=== PATIENT | female | born 1945 | race Caucasian/White ===

== ENCOUNTER → 2017-12-23 | Outpatient (CLI) | payer MEDICARE, OTHER ==
[~2017-12-23] MED LIST: ADULT LOW DOSE81 MG PO; ALDACTONE25 MG PO; COUMADIN 5 MG TA5 M1 PO; COZAAR 50 MG TA50 M2 PO; CRESTOR20 MG PO; FISHOIL PO; K-DUR10 ME1 PO; LAMISIL250 MG PO; LEVOTHYROXINE 0.15MG PO; LEVOTHYROXINE0.2 M1 PO; PACERONE 200 M200 M1 NG; TOPROL XL25 MG PO; TRAMADOL 50 MG50 MG PO; TRIAMTERENE-HC1 EAC1 PO; VOLTAREN GEL 1100 G2 TOP; [UNRECOGNIZED DRUG - CODE] PO
== END ==
LOC: M.WC 10:00
DX: L89.312 Pressure ulcer of right buttock, stage 2 (principal); S31.811A Laceration without foreign body of right buttock, initial encounter; I48.2 Chronic atrial fibrillation; I10 Essential (primary) hypertension; E78.5 Hyperlipidemia, unspecified; E03.8 Other specified hypothyroidism; E78.00 Pure hypercholesterolemia, unspecified; E66.01 Morbid (severe) obesity due to excess calories; I25.10 Atherosclerotic heart disease of native coronary artery without angina pectoris; Z95.1 Presence of aortocoronary bypass graft; Z90.710 Acquired absence of both cervix and uterus; Z68.43 Body mass index [BMI] 50.0-59.9, adult; Z79.01 Long term (current) use of anticoagulants; X58.XXXA Exposure to other specified factors, initial encounter; Y93.89 Activity, other specified; Y92.89 Other specified places as the place of occurrence of the external cause; Y99.8 Other external cause status

== ENCOUNTER → 2018-01-07 | Outpatient (CLI) | payer MEDICARE, OTHER | LOC: M.WC 03:51 | DX: L89.312 Pressure ulcer of right buttock, stage 2 (principal); S71.131D Puncture wound without foreign body, right thigh, subsequent encounter; I10 Essential (primary) hypertension; I25.10 Atherosclerotic heart disease of native coronary artery without angina pectoris; I48.2 Chronic atrial fibrillation; E03.8 Other specified hypothyroidism; E78.5 Hyperlipidemia, unspecified; E78.00 Pure hypercholesterolemia, unspecified; E66.01 Morbid (severe) obesity due to excess calories; Z95.1 Presence of aortocoronary bypass graft; Z68.43 Body mass index [BMI] 50.0-59.9, adult; Z90.710 Acquired absence of both cervix and uterus; X58.XXXD Exposure to other specified factors, subsequent encounter ==

== ENCOUNTER → 2018-01-12 | Outpatient (CLI) | payer MEDICARE, OTHER ==
--- NOTE | 2018-01-12 12:26 | 2DMMODE ---
[place] [address] 2 D/M-MODE ECHOCARDIOGRAM Name: HAWA CAMERON Room: [facility]#: [id number] Admission: 01/12/18 Attend Phys: Miguel Patel, Discharge: Date of : 49 Date of Service: 01/12/18 1225 Report #: [id number] THIS REPORT FOR: //name// APPROVED REPORT Study performed: 01/12/2018 10:18:08 EXAM: Comprehensive 2D, Doppler, and color-flow Echocardiogram Patient Location: Out-Patient BSA: 2.44 HR: 57 bpm Other Information Study Quality: Fair Technically limited study due to body habitus, inability to position patient. Indications Aortic Valve Disease CAD 2D Dimensions LVEF(%): 62.61 (>50%) IVSd: 11.21 (7-11mm) LVOT Diam: 16.57 (18-24mm) LVDd: 45.17 mm PWd: 10.22 (7-11mm) Ascending Ao: 27.00 (22-36mm) LVDs: 29.95 (25-40mm) Aortic Root: 25.27 mm Gee's LVEF: 62.61 % Volumes Left Atrial Volume (Systole) LA ESV Index: 32.80 mL/m2 Aortic Valve AoV Peak Keenan.: 4.11 m/s AO Peak Gr.: 67.00 mmHg LVOT Max P.45 mmHg AO Mean Gr.: 41.00 mmHg LVOT Mean P.84 mmHg LVOT Max V: 0.93 m/s AO V2 VTI: 106.90 cm LVOT Mean V: 0.63 m/s JORGE (VTI): 0.47 cm2 LVOT V1 VTI: 23.51 [place] [address] 2 D/M-MODE ECHOCARDIOGRAM Name: HAWA CAMERON Room: [facility]#: [id number] Admission: 01/12/18 Attend Phys: Miguel Patel, Discharge: Date of : 49 Date of Service: 01/12/18 1225 Report #: [id number] E/A Ratio: 1.32 MV Decel. Time: 252.78 ms MV E Max Keenan.: 0.95 m/s MV PHT: 73.31 ms MVA (PHT): 3.00 cm2 TDI E/Lateral E': 7.92 E/Medial E': 10.56 Medial E' Keenan.: 0.09 m/s Lateral E' Keenan.: 0.12 m/s Pulmonary Valve PV Peak Keenan.: 1.26 m/s PV Peak Gr.: 6.38 mmHg Tricuspid Valve RAP Estimate: 5.00 mmHg TR Peak Gr.: 43.56 mmHg RVSP: 48.56 mmHg PA Pressure: 48.56 mmHg Left Ventricle The left ventricle is normal size. There is normal LV segmental wall motion. There is normal left ventricular wall thickness. Left ventricular systolic function is normal. The left ventricular ejection fraction is within the normal range. LVEF is 55-60%. Right Ventricle The right ventricle is normal size. The right ventricular systolic function is normal. Atria Left atrium is moderately dilated. Right atrium is mildly dilated. Aortic Valve Aortic valve is calcified. Trace aortic regurgitation. Moderate aortic stenosis. Mitral Valve There is mitral annular calcification. Mild to moderate mitral regurgitation. No evidence of mitral valve stenosis. Tricuspid Valve The tricuspid valve is normal in structure. Moderate tricuspid regurgitation[place] [address] 2 D/M-MODE ECHOCARDIOGRAM Name: HAWA CAMERON Tl Room: [facility]#: [id number] Admission: 01/12/18 Attend Phys: Miguel Patel, Discharge: Date of : 49 Date of Service: 01/12/18 1225 Report #: [id number] The pulmonary valve is normal in structure. Mild pulmonic regurgitation. Great Vessels The aortic root is normal in size. IVC is normal in size and collapses with >50% inspiration Pericardium There is no pericardial effusion. <Conclusion> The left ventricle is normal size. There is normal left ventricular wall thickness. Left ventricular systolic function is normal. The left ventricular ejection fraction is within the normal range. LVEF is 55-60%. The right ventricle is normal size. Aortic valve is calcified. Trace aortic regurgitation. Moderate aortic stenosis. There is mitral annular calcification. Mild to moderate mitral regurgitation. The tricuspid valve is normal in structure. Moderate tricuspid regurgitation. IVC is normal in size and collapses with >50% inspiration There is no pericardial effusion. There is normal LV segmental wall motion. Left atrium is moderately dilated. <ELECTRONICALLY SIGNED> By: Agustín Monzon MD, FACC 01/12/18 1225 1225 1225 Agustín Monzon MD, FACC /INF
== END ==
LOC: M.CRD 10:00
DX: I08.3 Combined rheumatic disorders of mitral, aortic and tricuspid valves (principal); I25.10 Atherosclerotic heart disease of native coronary artery without angina pectoris

== ENCOUNTER → 2018-01-20 | Outpatient (CLI) | payer MEDICARE, OTHER | LOC: M.WC 02:10 | DX: L89.312 Pressure ulcer of right buttock, stage 2 (principal); I10 Essential (primary) hypertension; I48.2 Chronic atrial fibrillation; I25.10 Atherosclerotic heart disease of native coronary artery without angina pectoris; E78.5 Hyperlipidemia, unspecified; E03.9 Hypothyroidism, unspecified; E78.00 Pure hypercholesterolemia, unspecified; E66.01 Morbid (severe) obesity due to excess calories; Z95.1 Presence of aortocoronary bypass graft; Z68.43 Body mass index [BMI] 50.0-59.9, adult; Z90.710 Acquired absence of both cervix and uterus ==

== ENCOUNTER → 2018-02-04 | Outpatient (CLI) | payer MEDICARE, OTHER | LOC: M.WC 01:59 | DX: L89.312 Pressure ulcer of right buttock, stage 2 (principal); I25.10 Atherosclerotic heart disease of native coronary artery without angina pectoris; I48.2 Chronic atrial fibrillation; I10 Essential (primary) hypertension; E03.8 Other specified hypothyroidism; E66.01 Morbid (severe) obesity due to excess calories; E78.5 Hyperlipidemia, unspecified; E78.00 Pure hypercholesterolemia, unspecified; Z68.43 Body mass index [BMI] 50.0-59.9, adult; Z95.1 Presence of aortocoronary bypass graft ==

== ENCOUNTER → 2018-02-18 | Outpatient (CLI) | payer MEDICARE, OTHER | LOC: M.WC 01:52 | DX: L89.312 Pressure ulcer of right buttock, stage 2 (principal); L98.412 Non-pressure chronic ulcer of buttock with fat layer exposed; I10 Essential (primary) hypertension; I25.10 Atherosclerotic heart disease of native coronary artery without angina pectoris; I48.2 Chronic atrial fibrillation; E03.8 Other specified hypothyroidism; E78.00 Pure hypercholesterolemia, unspecified; E78.5 Hyperlipidemia, unspecified; E66.01 Morbid (severe) obesity due to excess calories; Z68.43 Body mass index [BMI] 50.0-59.9, adult ==

== ENCOUNTER → 2018-03-04 | Outpatient (CLI) | payer MEDICARE, OTHER | LOC: M.WC 02:54 | DX: L89.312 Pressure ulcer of right buttock, stage 2 (principal); E03.8 Other specified hypothyroidism; E66.01 Morbid (severe) obesity due to excess calories; E78.5 Hyperlipidemia, unspecified; I25.10 Atherosclerotic heart disease of native coronary artery without angina pectoris; I48.2 Chronic atrial fibrillation; I10 Essential (primary) hypertension; Z68.43 Body mass index [BMI] 50.0-59.9, adult; Z95.1 Presence of aortocoronary bypass graft ==

== ENCOUNTER → 2018-03-18 | Outpatient (CLI) | payer MEDICARE, OTHER | LOC: M.WC 05:00 | DX: L89.312 Pressure ulcer of right buttock, stage 2 (principal); I25.10 Atherosclerotic heart disease of native coronary artery without angina pectoris; I48.2 Chronic atrial fibrillation; I10 Essential (primary) hypertension; E03.8 Other specified hypothyroidism; E78.5 Hyperlipidemia, unspecified; E78.00 Pure hypercholesterolemia, unspecified; E66.01 Morbid (severe) obesity due to excess calories; Z68.43 Body mass index [BMI] 50.0-59.9, adult ==

== ENCOUNTER → 2018-04-12 | Outpatient (CLI) | payer MEDICARE, OTHER | LOC: M.WC 04:52 | DX: L89.312 Pressure ulcer of right buttock, stage 2 (principal); E66.01 Morbid (severe) obesity due to excess calories; E78.5 Hyperlipidemia, unspecified; E78.00 Pure hypercholesterolemia, unspecified; E03.8 Other specified hypothyroidism; I48.2 Chronic atrial fibrillation; I25.10 Atherosclerotic heart disease of native coronary artery without angina pectoris; I10 Essential (primary) hypertension; Z95.1 Presence of aortocoronary bypass graft; Z68.43 Body mass index [BMI] 50.0-59.9, adult ==

== ENCOUNTER → 2018-04-26 | Outpatient (CLI) | payer MEDICARE, OTHER | LOC: M.WC 08:13 | DX: L89.312 Pressure ulcer of right buttock, stage 2 (principal); E78.5 Hyperlipidemia, unspecified; E78.00 Pure hypercholesterolemia, unspecified; E66.01 Morbid (severe) obesity due to excess calories; E03.8 Other specified hypothyroidism; I25.10 Atherosclerotic heart disease of native coronary artery without angina pectoris; I10 Essential (primary) hypertension; I48.2 Chronic atrial fibrillation; Z95.1 Presence of aortocoronary bypass graft; Z68.43 Body mass index [BMI] 50.0-59.9, adult ==

== ENCOUNTER → 2018-05-10 | Outpatient (CLI) | payer MEDICARE, OTHER | LOC: M.WC 04:56 | DX: L89.312 Pressure ulcer of right buttock, stage 2 (principal); E78.5 Hyperlipidemia, unspecified; E78.00 Pure hypercholesterolemia, unspecified; E66.01 Morbid (severe) obesity due to excess calories; E03.8 Other specified hypothyroidism; I25.10 Atherosclerotic heart disease of native coronary artery without angina pectoris; I10 Essential (primary) hypertension; I48.2 Chronic atrial fibrillation; Z68.43 Body mass index [BMI] 50.0-59.9, adult; Z95.1 Presence of aortocoronary bypass graft ==

== ENCOUNTER → 2018-05-24 | Outpatient (CLI) | payer MEDICARE, OTHER | LOC: M.WC 05:16 | DX: L89.312 Pressure ulcer of right buttock, stage 2 (principal); E78.5 Hyperlipidemia, unspecified; E78.00 Pure hypercholesterolemia, unspecified; E66.01 Morbid (severe) obesity due to excess calories; E03.8 Other specified hypothyroidism; I48.2 Chronic atrial fibrillation; I25.10 Atherosclerotic heart disease of native coronary artery without angina pectoris; I10 Essential (primary) hypertension; Z68.43 Body mass index [BMI] 50.0-59.9, adult; Z95.1 Presence of aortocoronary bypass graft ==

== ENCOUNTER → 2018-06-07 | Outpatient (CLI) | payer MEDICARE, OTHER | LOC: M.WC 04:48 | DX: L89.312 Pressure ulcer of right buttock, stage 2 (principal); E78.5 Hyperlipidemia, unspecified; E66.01 Morbid (severe) obesity due to excess calories; E78.00 Pure hypercholesterolemia, unspecified; E03.8 Other specified hypothyroidism; I48.2 Chronic atrial fibrillation; I25.10 Atherosclerotic heart disease of native coronary artery without angina pectoris; I10 Essential (primary) hypertension; Z95.1 Presence of aortocoronary bypass graft; Z68.43 Body mass index [BMI] 50.0-59.9, adult ==

== ENCOUNTER → 2018-07-12 | Outpatient (CLI) | payer MEDICARE, BC | LOC: M.WC 06-28 09:00 | DX: L89.312 Pressure ulcer of right buttock, stage 2 (principal); E66.01 Morbid (severe) obesity due to excess calories; E78.5 Hyperlipidemia, unspecified; E78.00 Pure hypercholesterolemia, unspecified; E03.8 Other specified hypothyroidism; I25.10 Atherosclerotic heart disease of native coronary artery without angina pectoris; I10 Essential (primary) hypertension; I48.2 Chronic atrial fibrillation; Z68.43 Body mass index [BMI] 50.0-59.9, adult; Z95.1 Presence of aortocoronary bypass graft ==

== ENCOUNTER → 2019-01-25 | Outpatient (CLI) | payer MEDICARE, BC ==
[~2019-01-25] MED LIST changes: +FISH OIL 1,001000 M2 PO
== END ==
LOC: M.RAD 11:10
DX: Z12.31 Encounter for screening mammogram for malignant neoplasm of breast (principal)

== ENCOUNTER → 2019-01-31 | Outpatient (CLI) | payer MEDICARE, OTHER ==
[~2019-01-31] VITALS: Ht 162.6 cm; Wt 154.2 kg
[2019-01-31] VITALS (8 sets, daily range): BP systolic 118–134; BP diastolic 46–76
[2019-01-31 09:37] LABS: HEMATOCRIT 36.4 % (37.0-47.0); HEMOGLOBIN 12.7 gm/dL (12.0-15.0); MCH 32.7 pg (26.0-34.0); MCHC 34.8 g/dL (28.0-37.0); MPV 8.6 fl. (7.2-11.1); RBC 3.88 mil/uL (4.20-5.00); RDW-CV 13.5 % (10.5-14.5); WBC 6.8 thou/uL (4.0-11.0)
[2019-01-31 09:43] LABS: ANION GAP 8 mmol/L (7-16); BUN 27 mg/dL (7-18); CALCIUM 9.3 mg/dL (8.5-10.1); CHLORIDE 104 mmol/L (98-107); CO2 25 mmol/L (21-32); CREATININE 1.4 mg/dL (0.6-1.3); GLUCOSE 143 mg/dL (70-99); POTASSIUM 4.5 mmol/L (3.5-5.1); SODIUM 137 mmol/L (136-145)
[2019-01-31 09:45] LABS: APTT 26.8 Seconds (25.0-31.3); INR 1.1; PROTIME 11.7 Seconds (9.20-11.50)
[2019-01-31 09:48] LABS: ALBUMIN 3.5 g/dL (3.4-5.0); ALKALINE PHOSPHATASE 65 U/L (46-116); CHOLESTEROL 143 mg/dL (<200); HDL CHOLESTEROL 49 mg/dL (>40); LDL CHOLESTEROL 60 mg/dL (<100); SGOT 19 U/L (15-37); SGPT 22 U/L (30-65); TC:HDL 2.9 Ratio (Not establshd); TOTAL BILIRUBIN 3.7 mg/dL (<0.1-1.0); TOTAL PROTEIN 7.1 g/dL (6.4-8.2); TRIGLYCERIDE 173 mg/dL (<150); VLDL 35 mg/dL (<40)
[2019-01-31 09:50] LABS: SERUM ASSESSMENT Clear
--- NOTE | 2019-01-31 10:39 | EKG ---
[place] [address] ELECTROCARDIOGRAM REPORT Name: RAKESHHAWA Room: [facility]#: [id number] Admission: 01/31/19 Attend Phys: Miguel Patel MD Discharge: Date of : 49 Report #: [id number] THIS REPORT FOR: //name// [facility] Test Date: 2019-01-31 Test Time: 09:43:38 Pat Name: HAWA CAMERON Department: Room: Gender: F Heat Treat Supervisor: : 1945 Requested By: Miguel Patel Order Number: [id number] Brigido MD: Miguel Patel Measurements Intervals [place] Rate: 58 P: 61 SC: 197 QRS: -48 QRSD: 185 T: 123 QT: 496 QTc: 488 Interpretive Statements Sinus rhythm Left bundle branch block Compared to ECG 06/18/2016 09:36:16 First degree AV block no longer present Electronically Signed On 01-31-2019 10:38:57 CDT by Miguel Patel [email or web address] <ELECTRONICALLY SIGNED> By: Miguel Patel MD, [facility] 01/31/19 1038 D: [id number] 2 Miguel Patel MD, FACC /EPI
--- NOTE | 2019-01-31 17:07 | CARD ---
[address] [address] CARDIAC CATH REPORT Name: HAWA CAMERON Room: [facility]#: [id number] Admission: 01/31/19 Attend Phys: Miguel Patel MD Discharge: Date of : 49 Report #: [id number] THIS REPORT FOR: //name// APPROVED REPORT Study performed: 01/31/2019 09:41:07 Patient Details The patient is a 73 year-old female Event Personnel Miguel Patel Retail Team Leader, Kimmy Rodriguez RN RN, Marshall CastilloIS Scrub, Ramya Fontana RN Monitor Procedures Performed Art Access - R femoral artery* Procedure Narrative The patient was brought electively to the Cardiac Catheterization Laboratory and was prepped and draped in a sterile manner. A 6fr Ultimum sheath was inserted into the right femoral artery. Coronary angiography was performed using coronary diagnostic catheters. The right coronary system was accessed and visualized with a JR 4 6fr. catheter. The left coronary system was accessed and visualized with a JL 4 6fr. catheter. The patient tolerated the procedure well and there were no complications associated with the procedure. Intraoperative Conscious Sedation Sedation start time: 1044 Case end Time: 1132 Fentanyl 50 mcg Versed 2 mg Fluoro Time: 12.2 minutes Dose: DAP [id number] cGycm2 1934 mGy Contrast Type and Amount: Visipaque 120 ml [place] Artery Percent Stenosis ORTIZ graft to the distal LAD is widely patent with good distal anastomoses. Widely patent, large in caliber saphenous vein graft to the first obtuse marginal branch with good proximal and distal anastomoses. Diagnostic Cath [address] [address] CARDIAC CATH REPORT Name: HAWA CAMERON Room: [facility]#: [id number] Admission: 01/31/19 Attend Phys: Miguel Patel MD Discharge: Date of : 49 Report #: [id number] Left Main The left main coronary artery appears free of disease and bifurcates into a left anterior descending, small intermediate ramus and obtuse marginal branches. LAD 50% ostial narrowing. 70% tubular narrowing in the mid vessel. The distal vessel fills via a ORTIZ graft. Diagonal 1 50% ostial narrowing otherwise free of significant disease. Circumflex Free of significant disease in the proximal mid and distal portion. OM1 Grafted by a saphenous vein graft. The vessel appears to be free of significant disease, large, and branch. OM2 Small in caliber and free of significant disease. Right Coronary Preoperative significant disease in the proximal mid and distal portion. R PDA Small in caliber and free of significant disease. RPLV Moderate branch vessel free of significant disease. Ramus Moderate caliber vessel with marginal distribution that is free of significant disease. Left Ventriculography Left Ventriculography was not performed. Hemodynamics The aortic pressure is 133/50 mmHg with a mean of 80 mmHg. The left ventricular pressure is 199/5 mmHg with a mean of mmHg. The left ventricular end diastolic pressure is 24 mmHg. Conclusion 1. Coronary artery disease involving primarily the left anterior descending coronary artery as outlined above. 2. Patent ORTIZ graft to the LAD. 3. Patent saphenous vein graft to the second obtuse marginal branch. 4. Moderately elevated left ventricular end-diastolic pressure. 5. Severe aortic stenosis. Peak to peak gradient 56 mmHg. Recommendations 1. Continue [place] [address] CARDIAC CATH REPORT Name: HAWA CAMERON Room: [facility]#: [id number] Admission: 01/31/19 Attend Phys: Miguel Patel MD Discharge: Date of : 49 Report #: [id number] 2. Continue treatment of acute on chronic diastolic heart failure. 3. Consider transcutaneous aortic valve replacement. <ELECTRONICALLY SIGNED> By: Miguel Patel MD, FACC 01/31/19 1706 05 05Micnapoleon Patel MD, FACC /INF
== END | disposition home or self-care (01) ==
LOC: M.CL 08:40
PROVIDERS: Internal Medicine Cardiovascular Disease
DX: I25.10 Atherosclerotic heart disease of native coronary artery without angina pectoris (principal); I11.0 Hypertensive heart disease with heart failure; I50.33 Acute on chronic diastolic (congestive) heart failure; I35.0 Nonrheumatic aortic (valve) stenosis; E78.00 Pure hypercholesterolemia, unspecified; E07.9 Disorder of thyroid, unspecified; Z98.890 Other specified postprocedural states; Z79.899 Other long term (current) drug therapy; Z91.041 Radiographic dye allergy status; Z88.8 Allergy status to other drugs, medicaments and biological substances; Z79.82 Long term (current) use of aspirin

== ENCOUNTER → 2020-05-20 | Outpatient (CLI) | payer MEDICARE, OTHER ==
[2020-05-20 16:17] LABS: PROTIME 68.1 Seconds (9.20-11.50)
[2020-05-20 16:22] LABS: INR 7.2
== END ==
LOC: M.LAB 15:47
PROVIDERS: ATTEND Internal Medicine Cardiovascular Disease
DX: I48.0 Paroxysmal atrial fibrillation (principal); Z79.01 Long term (current) use of anticoagulants